=== PATIENT | female | born 1970 | race Caucasian/White ===

== ENCOUNTER → 2016-11-05 | Outpatient (CLI) | payer BC ==
[~2016-11-05] MED LIST: SINGULAIR PO
--- NOTE | ~2016-11-05 | US85 ---
[facility] RADIOLOGY TEXT RESULTS PATIENT: MATT HARTMAN LOCATION: CNIV : 70 UNIT #: [id number] AGE: [address]: KENDRICK RODRIGUEZ SEX: F ORDER DR: [id number] [facility] [address] [place], [place] [address] [id number] O MR#: [id number] Acc #: [id number] NAME: MATT HARTMAN : 1970 SEX: F STUDY DATE/TIME: 11/05/2016 16:18 UNIT: CNIV ROOM: STUDY DESCRIPTION: [facility] [place] [facility] Attending Physician: Kendrick Rodriguez Aprn Referring Physician: Kendrick Rodriguez Aprn Primary Care Physician: Michelle Jackson M.D. MEDICAL IMAGING REPORT This report is preliminary unless electronic signature is present EXAM Right lower extremity venous duplex. HISTORY Right lower extremity pain, swelling, and redness in right calf for 1 week. Evaluate for deep vein thrombosis. TECHNIQUE Venous ultrasound examination of the right lower extremity was performed using grayscale, spectral Doppler and color flow Doppler imaging. FINDINGS The examination is negative. There is no evidence of right lower extremity deep venous thrombus from the groin to the lower calf. Visualized greater saphenous vein is also patent. IMPRESSION Negative examination. No evidence of right lower extremity deep venous thrombosis. Dictated by... Romain Conway M.D. THIS IS AN ELECTRONICALLY VERIFIED REPORT Romain Conway M.D. at 11/06/2016 8:30 AM GRACIE/j carlos TD: 11/05/2016 18:51 JOB #: [id number] MEDICAL IMAGING REPORT [facility] RADIOLOGY TEXT RESULTS PATIENT: MATT HARTMAN LOCATION: CNIV : 70 UNIT #: [id number] AGE: [address]: KENDRICK RODRIGUEZ SEX: F ORDER DR: Page 1 of 1 COPY
== END | disposition home or self-care (01) ==
LOC: CNIV 14:44
DX: M79.89 Other specified soft tissue disorders (principal)
CPT/HCPCS: 93971